=== PATIENT | female | born 2000 | race Caucasian/White ===

== ENCOUNTER 2020-11-15 21:12 | Day surgery (SDC) | payer OTHER ==
[2020-11-15] MEDS ORDERED: hydrALAZINE 20 MG/ML VIAL SLOW IVP PRN (22:04)
== END 2020-11-15 22:45 | disposition home or self-care (01) ==
LOC: CSHLD/OP 21:12
PROVIDERS: ATTEND Obstetrics & Gynecology
DX: O99.891 Other specified diseases and conditions complicating pregnancy (principal); N89.8 Other specified noninflammatory disorders of vagina; O24.410 Gestational diabetes mellitus in pregnancy, diet controlled; O99.613 Diseases of the digestive system complicating pregnancy, third trimester; K21.9 Gastro-esophageal reflux disease without esophagitis; O09.293 Supervision of pregnancy with other poor reproductive or obstetric history, third trimester; Z3A.38 38 weeks gestation of pregnancy
CPT/HCPCS: 99283

== ENCOUNTER 2020-11-18 20:50 | Day surgery (SDC) | payer OTHER ==
[2020-11-18 21:22] VITALS: BMI 25.7
[2020-11-18] MEDS ORDERED: hydrALAZINE 20 MG/ML VIAL SLOW IVP PRN (21:52)
[2020-11-18 22:33] LABS: Amnisure Test No Membranes Rupture (No Rupture)
== END 2020-11-19 02:15 | disposition home or self-care (01) ==
LOC: CSHLD/OP 20:50
PROVIDERS: ATTEND Obstetrics & Gynecology
DX: O99.891 Other specified diseases and conditions complicating pregnancy (principal); N89.8 Other specified noninflammatory disorders of vagina; O99.613 Diseases of the digestive system complicating pregnancy, third trimester; K21.9 Gastro-esophageal reflux disease without esophagitis; O09.293 Supervision of pregnancy with other poor reproductive or obstetric history, third trimester; Z3A.38 38 weeks gestation of pregnancy
CPT/HCPCS: 76815; 84112; 87480; 87510; 87660; 99283

== ENCOUNTER 2020-11-21 08:47 | Outpatient (CLI) | payer OTHER ==
[2020-11-21 17:56] LABS: SARS-CoV-2 PCR by NAA Not Detected (NotDetected)
== END 2020-11-21 08:48 | disposition home or self-care (01) ==
LOC: CSHLAB 08:47
PROVIDERS: ATTEND Obstetrics & Gynecology
DX: Z20.822 Contact with and (suspected) exposure to COVID-19 (principal)
CPT/HCPCS: 87635; U0003; U0005

== ENCOUNTER 2020-11-25 18:00 | Inpatient (IN) | payer OTHER ==
[~2020-11-25 18:00] MED LIST: Bupivacaine 0.25% HCL 30 ML VIAL ONE; Bupivacaine PF 0.5% 30 ML VIAL ONE; Sodium Chloride 0.9% (PF) 10 ML VIAL ONE
[2020-11-25] MEDS ORDERED: HYDROcodone/Acetaminophen 5/325 mg Tablet PO PRN ×2 (19:06)
[2020-11-25] MEDS ORDERED: Acetaminophen 500 MG TAB PO PRN (19:06)
[2020-11-25] MEDS ORDERED: Misoprostol 200 MCG TAB PR PRN (19:06)
[2020-11-25] MEDS ORDERED: Diphenoxylate HCl/Atropine Tablet PO PRN ×2 (19:06)
[2020-11-25] MEDS ORDERED: Lidocaine 1% (PF) 30 ML VIAL SC PRN (19:06)
[2020-11-25] MEDS ORDERED: hydrALAZINE 20 MG/ML VIAL SLOW IVP PRN (19:06)
[2020-11-25] MEDS ORDERED: Zolpidem Tartrate 5 MG TAB PO PRN (19:06)
[2020-11-25] MEDS ORDERED: Promethazine HCl 25 MG/ML VIAL IM PRN (19:06)
[2020-11-25] MEDS ORDERED: Docusate 100 MG CAP PO PRN (19:06)
[2020-11-25] MEDS ORDERED: Ondansetron PF 4 MG/2 ML Vial IVP PRN (19:06)
[2020-11-25] MEDS ORDERED: Ibuprofen 800 MG TAB PO PRN (19:06)
[2020-11-25] MEDS ORDERED: NS w/ Oxytocin 30 units 500 ML IVPB PRN (19:14)
[2020-11-25 19:21] VITALS: BMI 29.8
[2020-11-25 19:21] LABS: Hemoglobin 12.6 g/dL (12.0-15.5); Mean Corpuscular HGB CONC 34.2 g/dL (32.0-36.0); Mean Corpuscular Hemoglobin 29.2 pg (27.0-33.0); Mean Corpuscular Volume 85.4 fl (81.6-98.3); Mean Platelet Volume 12.8 fl (7.4-10.4); RBC Distribution Width 13.5 % (11.5-14.5); Red Blood Cell (RBC) Count 4.31 10x6/uL (3.90-5.03); White Blood Cell (WBC) Count 10.7 10x3/uL (3.5-10.5)
[2020-11-25 19:22] LABS: Platelet Count 164 10x3/uL (150-450)
[2020-11-25] MEDS ORDERED: NS w/ Oxytocin 30 units 500 ML IVPB SCH ×2 (19:30)
[2020-11-25 19:51] LABS: Hep B Surf Ag Non-Reactive S/CO (NonReactive); Syphilis Antibody Nonreactive (Nonreactive); Syphilis Antibody Index 0.04 S/CO (<1.00 Non-Reactive)
[2020-11-25 20:08] LABS: HBSAg Index 0.12 S/CO (0-0.99)
[2020-11-25] MEDS: Misoprostol 100 MCG TAB VAG SCH (20:09)
[2020-11-25] MEDS: Butorphanol Tartrate 1 MG/ML VIAL SLOW IVP PRN (20:16)
[2020-11-25] MEDS: Lactated Ringer's 1,000 ML IV SCH (23:36)
[2020-11-26] MEDS: Butorphanol Tartrate 1 MG/ML VIAL SLOW IVP PRN ×2 (00:10→02:04)
[2020-11-26] MEDS ORDERED: Fentanyl 4 mcg/Bup 0.1% Cadd 100 ML ONE ×2 (04:38→12:20)
[2020-11-26] MEDS: Lactated Ringer's 1,000 ML IV SCH ×2 (05:24→23:20)
[2020-11-26] MEDS ORDERED: Promethazine HCl 25 MG/ML VIAL IM PRN ×2 (05:42→17:49)
[2020-11-26] MEDS ORDERED: ePHEDrine 50 MG/ML VIAL SLOW IVP PRN (05:42)
[2020-11-26] MEDS ORDERED: Eucerin (Mineral Oil/Petrolatum,White) 30 gm Jar TOP PRN ×2 (05:42→17:49)
[2020-11-26] MEDS ORDERED: Ondansetron PF 4 MG/2 ML Vial IVP PRN ×3 (05:42→18:53)
[2020-11-26] MEDS ORDERED: Naloxone HCl 0.4 mg/ml Vial IVP PRN ×4 (05:42→17:49)
[2020-11-26] MEDS ORDERED: Acetaminophen 325 MG TAB PO PRN ×2 (05:42→18:53)
[2020-11-26] MEDS ORDERED: diphenhydrAMINE 50 MG/ML VIAL IVP PRN ×2 (05:42→17:49)
[2020-11-26] MEDS ORDERED: Lactated Ringer's 500 ML IV PRN (05:42)
[2020-11-26] MEDS ORDERED: Fentanyl 4 mcg/Bupivacaine 0.1% Cassette 100 ML EPIDURAL SCH (05:45)
[2020-11-26] MEDS ORDERED: Communication Order-Pharmacy FS SCH ×2 (05:45→18:00)
[2020-11-26] MEDS: Misoprostol 100 MCG TAB VAG SCH (08:52)
[2020-11-26] MEDS ORDERED: Bicitra 30 ML UDCUP ONE (17:21)
[2020-11-26] MEDS ORDERED: Azithromycin 500 MG VIAL ONE (17:21)
[2020-11-26] MEDS ORDERED: Ondansetron PF 4 MG/2 ML Vial ONE (17:25)
[2020-11-26] MEDS ORDERED: Dexamethasone 4 mg/ml Vial ONE (17:25)
[2020-11-26] MEDS ORDERED: EPINEPHrine 1 MG/ML AMP ONE (17:25)
[2020-11-26] MEDS ORDERED: Ketorolac Tromethamine 30 MG/ML VIAL ONE (17:26)
[2020-11-26] MEDS ORDERED: Oxytocin 10 UNITS/ML VIAL ONE (17:44)
[2020-11-26] MEDS ORDERED: Lidocaine 2% MPF 10 ML AMP (For Epidural Use) ONE (17:44)
[2020-11-26] MEDS ORDERED: Ketorolac Tromethamine 30 MG/ML VIAL IVP PRN (17:49)
[2020-11-26] MEDS ORDERED: Promethazine HCl 25 MG SUPP PR PRN (17:49)
[2020-11-26] MEDS ORDERED: L&D-Morphine 4 MG/ML VIAL SLOW IVP PRN (17:49)
[2020-11-26] MEDS ORDERED: Ondansetron HCl/PF 4 MG/2 ML Vial IVP PRN (17:49)
[2020-11-26] MEDS ORDERED: Meperidine HCl/PF 25 MG/ML VIAL SLOW IVP PRN (17:49)
[2020-11-26] MEDS ORDERED: Naloxone HCl 0.4 mg/ml Vial IV PRN (17:49)
[2020-11-26] MEDS ORDERED: HYDROmorphone 2 MG/ML VIAL SLOW IVP PRN (17:49)
[2020-11-26] MEDS ORDERED: Ketorolac Tromethamine 30 MG/ML VIAL IVP SCH (18:00)
[2020-11-26] MEDS ORDERED: Morphine PF 10 MG/10 ML VIAL ONE (18:23)
[2020-11-26] MEDS ORDERED: Bisacodyl 10 MG SUPP PR PRN (18:53)
[2020-11-26] MEDS ORDERED: HYDROcodone/Acetaminophen 5/325 mg Tablet PO PRN (18:53)
[2020-11-26] MEDS ORDERED: hydrALAZINE 20 MG/ML VIAL SLOW IVP PRN (18:53)
[2020-11-26] MEDS ORDERED: Simethicone Chewable 80 MG TAB PO PRN (18:53)
[2020-11-26] MEDS ORDERED: Misoprostol 200 MCG TAB PR PRN (18:53)
[2020-11-26] MEDS ORDERED: Zolpidem Tartrate 5 MG TAB PO PRN (18:53)
[2020-11-26] MEDS ORDERED: Adacel (T-DAP) 0.5 ML SYRINGE IM ONE (18:53)
[2020-11-26] MEDS ORDERED: diphenhydrAMINE 25 MG CAP PO PRN (18:53)
[2020-11-26] MEDS ORDERED: Lanolin Ointment 7 GM TUBE TOP PRN (18:53)
[2020-11-26] MEDS ORDERED: NS w/ Oxytocin 30 units 500 ML IVPB SCH (19:15)
[2020-11-26] MEDS ORDERED: Ibuprofen 800 MG TAB PO SCH (22:00)
[2020-11-27] MEDS: Lactated Ringer's 1,000 ML IV SCH ×5 (01:50→21:26)
[2020-11-27] MEDS: Docusate Calcium (SURFAK) 240 MG CAP PO SCH ×3 (01:50→21:29)
[2020-11-27] MEDS: Ferrous Sulfate 325 MG TAB PO SCH ×3 (01:50→21:26)
[2020-11-27] MEDS: Ketorolac Tromethamine 30 MG/ML VIAL IVP PRN ×3 (01:55→15:09)
[2020-11-27] MEDS: Misoprostol 100 MCG TAB VAG SCH ×2 (02:01→02:02)
[2020-11-27 06:40] LABS: Hemoglobin 10.2 g/dL (12.0-15.5); Mean Corpuscular HGB CONC 33.6 g/dL (32.0-36.0); Mean Corpuscular Hemoglobin 29.6 pg (27.0-33.0); Mean Corpuscular Volume 88.1 fl (81.6-98.3); Mean Platelet Volume 13.1 fl (7.4-10.4); Platelet Count 144 10x3/uL (150-450); RBC Distribution Width 13.7 % (11.5-14.5); Red Blood Cell (RBC) Count 3.45 10x6/uL (3.90-5.03); White Blood Cell (WBC) Count 15.1 10x3/uL (3.5-10.5)
[2020-11-27] MEDS: Prenatal Vitamin 1 TAB PO SCH (08:48)
[2020-11-27] MEDS: Ibuprofen 800 MG TAB PO SCH (21:28)
[2020-11-28] MEDS: Lactated Ringer's 1,000 ML IV SCH ×2 (04:41→21:47)
[2020-11-28] MEDS: Ibuprofen 800 MG TAB PO SCH ×3 (05:35→21:45)
[2020-11-28] MEDS: Docusate Calcium (SURFAK) 240 MG CAP PO SCH ×2 (08:09→21:45)
[2020-11-28] MEDS: HYDROcodone/Acetaminophen 5/325 mg Tablet PO PRN ×3 (08:10→18:05)
[2020-11-28] MEDS: Prenatal Vitamin 1 TAB PO SCH (08:10)
[2020-11-28] MEDS: Ferrous Sulfate 325 MG TAB PO SCH ×2 (08:14→21:46)
[2020-11-29] MEDS: HYDROcodone/Acetaminophen 5/325 mg Tablet PO PRN ×3 (01:34→13:40)
[2020-11-29] MEDS: Lactated Ringer's 1,000 ML IV SCH ×2 (05:16→12:25)
[2020-11-29] MEDS: Ibuprofen 800 MG TAB PO SCH ×2 (05:17→15:16)
[2020-11-29] MEDS: Ferrous Sulfate 325 MG TAB PO SCH (07:11)
[2020-11-29 08:14] VITALS: BP 118/65; TEMP 98.4
[2020-11-29] MEDS: Docusate Calcium (SURFAK) 240 MG CAP PO SCH (08:30)
[2020-11-29] MEDS: Prenatal Vitamin 1 TAB PO SCH (08:30)
== END 2020-11-29 16:53 | disposition home or self-care (01) | DRG 788 ==
LOC: CSHLD 18:16 → CSHPP 11-26 21:49
PROVIDERS: ADMIT Obstetrics & Gynecology; ATTEND Obstetrics & Gynecology
PROC: 10D00Z1 Extraction of Products of Conception, Low, Open Approach (ICD-10-PCS; principal; 2020-11-26)
DX: O24.429 Gestational diabetes mellitus in childbirth, unspecified control (principal); Z3A.39 39 weeks gestation of pregnancy; Z37.0 Single live birth; O99.344 Other mental disorders complicating childbirth; F41.9 Anxiety disorder, unspecified; O99.62 Diseases of the digestive system complicating childbirth; K21.9 Gastro-esophageal reflux disease without esophagitis; O33.9 Maternal care for disproportion, unspecified; O32.4XX0 Maternal care for high head at term, not applicable or unspecified; O76 Abnormality in fetal heart rate and rhythm complicating labor and delivery
CPT/HCPCS: 36415; 51702; 85027; 86780; 86850; 86900; 86901; 87340; J0171; J0595; J1100; J1885; J2001; J2274; J2405; S0020